=== PATIENT | male | born 1995 | race Hispanic/Latino ===

== ENCOUNTER 2021-09-30 14:43 | Emergency (ER) | payer OTHER, SELFPAY ==
[2021-09-30 14:45] VITALS: BP 115/56; PULSE 71; RESP 18; TEMP 36.3; O2SAT 100
--- NOTE | 2021-09-30 14:48 | DI.US.S_ITS ---
PROCEDURE: US SCROTUM INDICATIONS: Blunt injury TECHNIQUE: Real-time scanning was performed of the scrotum and testicles, with image documentation. Color and pulse Doppler interrogation was performed of both testicles. COMPARISON: None. FINDINGS: Right: Testicle is normal in size at 2.4 x 2.7 x 4.5 cm, and homogenous in echotexture. Epididymis is normal in overall size and morphology. No hydrocele or varicoceles. Overlying scrotal skin is normal in thickness. Left: Testicle is normal in size at 2.2 x 2.6 x 4.6 cm, and homogeneous in echotexture. Epididymis is normal in overall size and morphology. No hydrocele or varicoceles. Overlying scrotal skin is normal in thickness. Doppler: Color and pulse Doppler demonstrate normal and symmetric arterial flow in both testicles. IMPRESSION: Normal study. Dictated by: Lyle Florentino M.D. on 09/30/2021 at 16:18 Approved by: Lyle Florentino M.D. on 09/30/2021 at 16:28
--- NOTE | 2021-09-30 16:37 | ED.MALEGU ---
HPI - Male Genitourinary <Frank Samuel PA-C - Last Filed: 09/30/21 18:20> General Chief complaint: Urogenital-Male Stated complaint: Hurt Genitals at Work Time Seen by Provider: 09/30/21 16:17 Source: patient Mode of arrival: Ambulatory History of Present Illness HPI Narrative: This is a 26-year-old Kazakh-speaking male presents to the emergency department due to a testicular injury. Patient states he was working when a piece of cement bounced upwards and hit him in the testicles. Patient describes a dull aching pain roughly 10 in severity. Denies any nausea, vomiting, abdominal pain, or any other concerning signs or symptoms. Patient states he was given a ?shot? of pain medication at place of the injury. Related Data Allergies Allergy/AdvReac Type Severity Reaction Status Date / Time No Known Drug Allergies Allergy Unverified 09/30/21 09:57 Review of Systems <Frank Samuel PA-C - Last Filed: 09/30/21 18:20> Review of Systems Narrative: See HPI Patient History <Frank Samuel PA-C - Last Filed: 09/30/21 18:20> Social History Smoking Status: Current some day smoker Smoking Status: Current some day smoker Substance Use Type: does not use Exam <LEXY Reese Last Filed: 09/30/21 18:20> Initial Vital Signs Initial Vital Signs: Vital Signs Temperature 97.4 F L 09/30/21 14:45 Pulse Rate 71 09/30/21 14:45 Respiratory Rate 18 09/30/21 14:45 Blood Pressure 115/56 L 09/30/21 14:45 Pulse Oximetry 100 09/30/21 14:45 Const General: cooperative and healthy appearing GI Other: Mild suprapubic generalized tenderness to palpation Other: Mild tenderness palpation of bilateral testicles. No skin injury. Testicles appear to lay flat there is no significant edema or ecchymosis. <Kelechi Kruse DO - Last Filed: 10/01/21 08:05> Initial Vital Signs Initial Vital Signs: Vital Signs Temperature 97.4 F L 09/30/21 14:45 Pulse Rate 71 09/30/21 14:45 Respiratory Rate 18 09/30/21 14:45 Blood Pressure 115/56 L 09/30/21 14:45 Pulse Oximetry 100 03/18/22 14:45 Course <Frank Samuel PA-C - Last Filed: 09/30/21 18:20> Orders Ordered: Discontinued Medications Ketorolac Tromethamine (Ketorolac 30 Mg/Ml Vial) 15 mg IM NOW ONE Stop: 09/30/21 16:27 Last Admin: 09/30/21 16:39 Dose: 15 mg Documented by: ZAHRAA Vital Signs Vital signs: Vital Signs - 8 hr 09/30/21 14:45 09/30/21 16:59 Temperature 97.4 F L Pulse Rate 71 70 Respiratory Rate 18 15 Blood Pressure 115/56 L 122/78 Pulse Oximetry 100 99 <Kelechi Kruse DO - Last Filed: 10/01/21 08:05> Orders Ordered: Discontinued Medications Ketorolac Tromethamine (Ketorolac 30 Mg/Ml Vial) 15 mg IM NOW ONE Stop: 09/30/21 16:27 Last Admin: 09/30/21 16:39 Dose: 15 mg Documented by: ZAHRAA Vital Signs Vital signs: Vital Signs - 8 hr 09/30/21 14:45 09/30/21 16:59 Temperature 97.4 F L Pulse Rate 71 70 Respiratory Rate 18 15 Blood Pressure 115/56 L 122/78 Pulse Oximetry 100 99 MDM - Male Genitourinary <Frank Samuel PA-C - Last Filed: 09/30/21 18:20> Imaging Data US - abdomen: Radiologist's Impression: [place] [address] Ultrasound Report Signed Patient: Edgardo Farooq MR#: [id number] : 1995 Acct:[id number] Age/Sex: 26 / M Date of Service: 09/30/21 Loc: ED Accession Number: [id number] ?? Procedure: US scrotum Ordering Provider: Frank Samuel P.A-C PROCEDURE:? US SCROTUM ? INDICATIONS:? Blunt injury ? TECHNIQUE:? Real-time scanning was performed of the scrotum and testicles, with image documentation.? Color and pulse Doppler interrogation was performed of both testicles.? ? COMPARISON:? None. ? FINDINGS:? ? Right:? Testicle is normal in size at 2.4 x 2.7 x 4.5 cm, and homogenous in echotexture.? Epididymis is normal in overall size and morphology.? No hydrocele or varicoceles.? Overlying scrotal skin is normal in thickness.? ? Left:? Testicle is normal in size at 2.2 x 2.6 x 4.6 cm, and homogeneous in echotexture.? Epididymis is normal in overall size and morphology.? No hydrocele or varicoceles.? Overlying scrotal skin is normal in thickness.? ? Doppler:? Color and pulse Doppler demonstrate normal and symmetric arterial flow in both testicles.? ? IMPRESSION:? Normal study. ? ? Dictated by: Lyle Florentino M.D. on 09/30/2021 at 16:18 ? ? Approved by: Lyle Florentino M.D. on 09/30/2021 at 16:28 ? MDM Narrative Medical decision making narrative: This is a 26-year-old male presents to the emergency department due to testicular injury. Testicular ultrasound showed no evidence of any kind of significant injury or abnormality. Suspect symptoms should improve over time with conservative and symptomatic treatment. No other concerning symptoms to address. Discharge Plan Departure Patient Disposition: Home Clinical Impression: Pain in testicle due to trauma Instructions: Ibuprofen Activity Restrictions/Additional Instructions: Thank you for coming to the [facility] Emergency Department. The results of the ultrasound showed no evidence of any kind of testicular injury. Any symptoms should improve over time with rest, ice, ibuprofen, and Tylenol. Nitesh por venir al [facility] de [facility]. Los resultados de la ecograf?a no mostraron evidencia de [place]?n tipo de lesi?n testicular. Cualquier s?ntoma deber?a mejorar con el tiempo con descanso, hielo, ibuprofeno y Tylenol. Referrals: Kavitha Francis PA-C [Primary Care Provider] - <Kelechi Kruse DO - Last Filed: 10/01/21 08:05> Cosign ED Attending Cosignature Attestation: I was immediately available in the department for consultation. This documentation has been reviewed and I agree with assessment and plan. Supervised by Kelechi Kruse DO
[2021-09-30] MEDS: KETOROLAC 30 MG/ML VIAL 15 MG IM (16:39)
[2021-09-30 16:59] VITALS: BP 122/78; PULSE 70; RESP 15; O2SAT 99
== END 2021-09-30 17:02 | disposition home or self-care (01) ==
PROVIDERS: Emergency Provider Physician Assistant Medical; PCP Physician Assistant Medical
DX: S39.94XA Unspecified injury of external genitals, initial encounter (principal); W20.8XXA Other cause of strike by thrown, projected or falling object, initial encounter; Y99.0 Civilian activity done for income or pay; F17.200 Nicotine dependence, unspecified, uncomplicated
CPT/HCPCS: 76870; 96372; 99283; J1885